=== PATIENT | male | born 1950 | race Caucasian/White ===

== ENCOUNTER 2024-09-20 10:09 | Inpatient (IN) | payer MEDICARE ==
[~2024-09-20] VITALS: Ht 182.9 cm; Wt 85.0 kg
[~2024-09-20 10:09] MED LIST: AMBIEN10 MG PO; AMBIEN5 MG PO; ANAPROX DS550 MG PO; ASPIR-LOW81 MG PO; FISH OIL 1,0001 EAC2 PO; FLOMAX0.4 MG PO; HYDROMORPHONE HC4 MG PO; LISINOPRIL-HCT1 EAC1 PO; LUMIGAN2.5 M1 OU; MULTIVITAMINS1 EAC8 PO; NAPROXEN500 MG PO; NITROGLYCERIN0.4 MG SL; NORCO 10-325 T1 EACH PO; NORCO 5-325 TA1 EACH PO; NUCYNTA50 MG PO; OMEPRAZOLE40 MG PO; TERAZOSIN HCL1 MG PO; TYLENOL PM EX-1 EAC2 PO; VIAGRA100 MG PO
[2024-09-20] MEDS ORDERED: BETIMOL5 M2 OU (14:18)
[2024-09-20] MEDS ORDERED: JANTOVEN5 MG PO (14:18)
[2024-09-20] MEDS ORDERED: FLOMAX0.4 MG PO (14:18)
[2024-09-20] MEDS ORDERED: ALENDRONATE SOD10 MG PO (14:20)
[2024-09-20] MEDS ORDERED: XALATAN2.5 ML OU (14:20)
[2024-09-20] MEDS ORDERED: TRAMADOL HCL50 MG PO (14:21)
[2024-09-20] MEDS ORDERED: LASIX20 MG PO (14:22)
[2024-09-20] MEDS ORDERED: CLARITIN10 MG PO (14:23)
[2024-09-20] MEDS ORDERED: POTASSIUM CHLO10 ME2 PO (15:02)
[2024-09-28] MEDS ORDERED: LACTATED RINGER'S 1,000 ML IV SCH ×2 (05:00→14:00)
[2024-09-28 06:05] VITALS: BP 149/73
--- NOTE | 2024-09-28 06:29 | NUR ---
0606 PT HAS WATCH, GLASSES IN BELONGING BAG. PT SUPPORT PERSON HAS TAKEN NECKLACE WITH THEM IN THEIR PURSE. PT AWARE.
[2024-09-28] MEDS ORDERED: MIDAZOLAM HCL 2 MG/2 ML VIAL ONE (06:32)
[2024-09-28] MEDS ORDERED: SODIUM CHLORIDE 0.9% 0 ML IV ONE (06:33)
[2024-09-28] MEDS ORDERED: Ropivacaine HCl 0.5% 30 ML VIAL ONE (06:33)
[2024-09-28] MEDS ORDERED: LIDOCAINE HCL 2% 5 ML SDV ONE ×4 (06:33→08:36)
[2024-09-28] MEDS ORDERED: DEXAMETHASONE SOD PHOS 4 MG/ML VIAL ONE ×2 (06:33→06:50)
[2024-09-28] MEDS ORDERED: fentaNYL citrate 100 MCG/2 ML VIAL ONE (06:49)
[2024-09-28] MEDS ORDERED: ACETAMINOPHEN 1,000 MG/100 ML VIAL ONE (06:50)
[2024-09-28] MEDS ORDERED: SODIUM CHLORIDE 0.9% 40 ML IV ONE ×2 (06:50→08:34)
[2024-09-28] MEDS ORDERED: KETAMINE in NS 50 MG/5 ML SYR ONE (06:50)
[2024-09-28] MEDS ORDERED: ROCURONIUM BROMIDE 50 MG/5 ML SYR ONE (06:50)
[2024-09-28] MEDS ORDERED: MAGNESIUM SULFATE 1 GM/2 ML VIAL ONE ×2 (06:59→08:34)
[2024-09-28] MEDS ORDERED: OXYCODONE HCL 5 MG TAB PO PRN (07:00)
[2024-09-28] MEDS ORDERED: GABAPENTIN 600 MG TAB PO SCH (07:00)
[2024-09-28] MEDS ORDERED: LIDOCAINE HCL 1% 5 ML SDV INJ ONE (07:00)
[2024-09-28] MEDS ORDERED: IBLOOD GLUCOSE TEST STRIP 1 EA TEST VI PRN ×2 (07:00→08:30)
[2024-09-28] MEDS ORDERED: TRANEXAMIC ACID IN NACL,ISO-OS 1,000 MG/100 ML PIGGYBACK IV SCH ×2 (07:00→09:58)
[2024-09-28] MEDS ORDERED: ROPIVACAINE IN 0.9% SOD CHL/PF 545 ML ELS.PMP.HR IRRIGATION SCH (07:00)
[2024-09-28] MEDS ORDERED: INTRA-ARTICULAR ANALGESIC INJECTION XX SCH (07:00)
[2024-09-28] MEDS ORDERED: PANTOPRAZOLE SODIUM 40 MG TABEC PO SCH (07:00)
[2024-09-28] MEDS ORDERED: KETOROLAC TROMETHAMINE 15 MG/ML VIAL IV PRN (07:00)
[2024-09-28] MEDS ORDERED: OXYCODONE HCL 5 MG TAB PO SCH (07:00)
[2024-09-28] MEDS ORDERED: Ropivacaine HCl 20 MG/10 ML AMP ONE (07:16)
[2024-09-28] MEDS ORDERED: KETOROLAC TROMETHAMINE 30 MG/ML VIAL IV PRN (08:30)
[2024-09-28] MEDS ORDERED: fentaNYL citrate 50 MCG/ML SDV IV PRN (08:30)
[2024-09-28] MEDS ORDERED: NALOXONE HCL 0.4 MG SYR IV PRN (08:30)
[2024-09-28] MEDS ORDERED: HYDROmorphone HCL 1 MG/ML SYR IV PRN (08:30)
--- NOTE | 2024-09-28 09:35 | NUR ---
09/28/24 0935 Marichuy Tipton 0922-PT ARRIVES TO PACU, VIA STRETCHER, PT NOT RESPONSIVE TO NOXIOUS STIMULI, OPA IN PLACE, VSS ON 6L VIA MASK, RR EVEN AND UNLABORED. 0925-PT REACTIVE TO NOXIOUS TIMULI, BUT CONTINUES TO REST W/ EYES CLOSED, OPA REMAINS IN PLACE.
[2024-09-28] MEDS ORDERED: SALINE LOCK FLUSH 5 ML SYR IV PRN (10:00)
--- NOTE | 2024-09-28 10:45 | OR ---
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 POSTOPERATIVE DIAGNOSIS: Infected left total knee replacement. PROCEDURES PERFORMED: 1. Removal of total knee replacement with placement of spacers. 2. Debridement of skin, subcutaneous tissue and bone. PHYSICAL SECURITY ENGINEER: Dawn Nguyen PA-C. Dawn was present and critical for all portions of procedure. ANESTHESIA: General. TOURNIQUET TIME: 105 minutes. IMPLANTS: Stage I Ronnie spacers. BRIEF HISTORY: Tani is a 74-year-old gentleman who suffered a mechanical injury about three months ago with subsequent onset of significant swelling in his knee. We treated this with physical therapy and ultimately did aspirate it after labs showed positive IL6 and sedimentation rate, CRP. The culture results showed marked growth of E coli, which was essentially pansensitive. Risks and benefits of removal of the implant since this has been going on for some time were discussed with him. He elected to proceed. I did not feel that a single stage revision was warranted given the bacteria and the length of symptoms. DESCRIPTION OF PROCEDURE: Once consent was obtained, he was taken to the operating room. After adequate anesthesia he was placed on operating room table. All downside pressure points were Electronically Signed By: ARMANI EASTON MD 09/28/24 1045 PATIENT NAME: LEE MUNGUIA OPERATIVE REPORT DATE OF : 50 REPORT #: [id number] PHYSICIAN: ARMANI EASTON MD PCP: AZEEM MARI DO REPORT IS CONFIDENTIAL AND NOT TO BE RELEASED WITHOUT AUTHORIZATION [facility] [address], [place] [address] Signed well padded. A well-padded proximal thigh tourniquet was placed. The leg was exsanguinated by gravity and prepped and draped in a standard sterile fashion. The tourniquet was inflated to 250 mmHg. The prior incision was marked out and incised longitudinally. A standard median parapatellar arthrotomy was performed. The fluid in the knee was again cultured and sent off to the hospital lab. The synovium in the front of the knee in the suprapatellar pouch and down both medial and lateral gutters was then removed sharply using the knife and rongeurs. The patella was then removed by sawing it off the three pegs. This was done to allow better access to the femur. Once this was completed, the synovium on the femur was removed. The polyethylene was then snapped out and removed. The edge of the femoral prosthesis was then cleared of soft tissue and bony overgrowth. It was then loosened by using the microsagittal saw to saw along the base of the prosthesis in all accessible areas and from medial and lateral portions of the notch. Then using ultrathin osteotomes, we were able to go all the way across the prosthesis. Then using a bone tap, we were able to tap it off with minimal bone loss. The bone underneath particularly on the medial femoral condyle was extremely soft and very spongy. The bone was cleared of all soft tissue and debris. Any remaining cement was removed. Attention was then turned to the proximal tibia. The tibial component was again loosened by using microsagittal saw followed by the osteotomes. We then tapped three or four times and we were able to again remove it with minimal bone loss. The remaining cement particularly in the stem were removed. The entire knee was then pulse lavaged with 2 L normal saline and one bottle of Surgiphor. The bottle of Surgiphor was allowed to sit. Then using the Ronnie trials, we determined the size of the mold for the articulating spacers. The spacer molds were then obtained and injected with cement to the proper depth. These were allowed to harden for 15 minutes. We then did a trial run with the spacers and found good soft tissue tension. Once this was completed, the third batch of cement was mixed and was placed in the tibial defects in a loose manner not trying to interdigitated into the bone. The tibia was then placed into position in similar manner. The femoral component was cemented to the distal femur and the knee was extended and loaded. While the cement was hardening we then removed the three polyethylene pegs from the patella and debrided any remaining cement. Once this was completed, the On-Q pain pump was percutaneously placed into the adductor canal. Periarticular soft tissues were injected with 4 mL ropivacaine Toradol mixture. We then closed the arthrotomy with #2 FiberWire followed by #2 Stratafix, subcutaneous tissue with 0 Stratafix and skin with rajendra. Wound was dressed with an Acticoat-7 dressing, ABD, and a bulky Lr. He tolerated the procedure well. All sponge, needle, and instrument counts were correct. Armani Easton MD Electronically Signed By: ARMANI EASTON MD 09/28/24 1045 PATIENT NAME: LEE MUNGUIA OPERATIVE REPORT DATE OF : 50 REPORT #: [id number] PHYSICIAN: ARMANI EASTON MD PCP: AZEEM MARI DO REPORT IS CONFIDENTIAL AND NOT TO BE RELEASED WITHOUT AUTHORIZATION [address] [place] [address] Signed /MODL /[id number] Copies: ~ Electronically Signed By: ARMANI EASTON MD 09/28/24 1045 PATIENT NAME: LEE MUNGUIA OPERATIVE REPORT DATE OF : 50 REPORT #: [id number] PHYSICIAN: ARMANI EASTON MD PCP: AZEEM MARI DO REPORT IS CONFIDENTIAL AND NOT TO BE RELEASED WITHOUT AUTHORIZATION
--- NOTE | 2024-09-28 11:41 | NUR ---
Pt's s/o is waiting in room 115 for the pt.
[2024-09-28 13:50] VITALS: BP 167/91
--- NOTE | 2024-09-28 14:08 | NUR ---
Pt arrived to the floor at about 1350 hours, transferred via bed by LEAD MINER BLASTING Marichuy. Pt is A&O x4, denies nausea/vomiting, reports last BM was 2 days ago. Reports pain in the back of his knee at a 2 out of 10 currently after the cryo cuff was moved to the back of the knee. He states he can tolerate up to about a 3 out of 10 before he will want pain medication. Pt's is at bedside. Pt is tolerating iced water, jello, and crackers at this time without c/o nausea/vomiting.
--- NOTE | 2024-09-28 14:52 | NUR ---
UR CLINICAL REVIEW: 2 MN KERVIN, MEETS INPT FOR LEFT INFECTED TKR SURGICAL PROCEDURE, IV FLUIDS, IV ANTIBIOTICS, IV PAIN MEDS MEDICARE INPT 09/28/24 @ 0704 ORDER MATCHES REG NO AUTH REQUIRED PER MEDICARE RULES. DC PLAN PENDING PT EVAL.
[2024-09-28 14:57] VITALS: BP 150/29
[2024-09-28] MEDS ORDERED: ACETAMINOPHEN 500 MG TAB PO SCH (15:00)
[2024-09-28] MEDS ORDERED: GABAPENTIN 300 MG CAP PO SCH (15:00)
[2024-09-28] MEDS ORDERED: SEVOFLURANE 250 ML BTL INH ONE (15:09)
--- NOTE | 2024-09-28 15:45 | NUR ---
"PICC LINE PLACEMENT" ORDER FOR PICC LINE PLACEMENT FROM DR WELLER FOR PROLONGED ANTIBIOTIC THERAPY. PROCEDURE EXPLAINED TO PT AND FAMILY PRIOR TO SURGERY IN THE MORNING IN ORDER TO OBTAIN CONSENT WITHOUT MEDICATIONS ON BOARD. PT AND FAMILY VERBALIZED UNDERSTANDING AND CONSENTED. WHILE IN PACU, THE RIGHT ARM WAS ASSESSED WITH ULTRASOUND FOR VEIN CHOICE. ALL VEINS AND ARTERY IDENTIFIED AND THE BASILIC VEIN WAS CHOSE AND MEASURED, CATHETER TO OCCUPY 30% OF VEIN AND APPROX 1 CM DEEP. PT MEASURED FOR PICC LENGTH, MAGNET TRACKER SET UP, AND PT PREPPED IN STERILE FASHION. RIGHT BASILIC VEIN ACCESSED WITH 20 G IV CATHETER AND BLOOD RETURNED, UNABLE TO DRAW BLOOD FROM SITE AND DECIDED TO CHOSE ANOTHER SITE. BRACHIAL VEINS WERE NOT APPROPRIATE, DECISION TO MOVE TO LEFT SIDE OF PT. ABOVE STEPS WERE FOLLOWED AGAIN, LEFT BASILIC VEIN THE BEST OPTION ON THE LEFT, CATHETER TO OCCUPY 35% OF VEIN AND APPROX 0.5 CM DEEP. PT MEASURED AND PREPPED AGAIN IN A STERILE FASHION. SITE WAS INJECTED WITH 1% LIDOCAINE, VEIN ACCESSED WITH 20 G IV CATHETER, DARK RED NON PULSATILE BLOOD RETURNED. GUIDE WIRE FED INTO CATHETER WITHOUT DIFFICULT, CATHETER REMOVED. VEIN DILATED WITH TRANSDUCER, AGAIN NON PULSATILE DARK RED BLOOD RETURNED. GUIDE WIRE REMOVED AND INTACT. PICC LINE FED THROUGH TRANSDUCER AT A SLOW PACE, MAGNET TRACKER IS NOT PICKING UP THE CATHETER, CONTINUE TO FEED AND ATTEMPT TO TROUBLESHOOT SYSTEM. NO ECTOPY ON MONITOR, PT HAS NO SENSATION IN NECK. CONTINUE TO ADVANCE CATHETER TO 0 CM EXPOSED, UNABLE TO GET MAGNET TRACKER TO TRACK PICC. DECISION TO STERILY DRESS CATHETER AND GET A CHEST XRAY FOR PLACEMENT, POSITIVE BLOOD RETURN. 1315- XRAY REPORT SHOWS THAT PICC LINE IS NOT PLACED CORRECTLY AND RECOMMENDS REPOSITIONING. PICC TEAM CONSULTED AND PLAN TO PROCEED MADE. 1330- PT DRAPED STERILY AND THIS RN GOWN, CAP, AND MASK. DRESSING REMOVED AND ARM PREPPED IN STERILE FASHION. CATHETER REMOVED 15 CM, PT HEAD OF BED ELEVATED TO 30 DEGREES, HAD PT TURN HEAD TO LEFT SHOULDER AND LOOK DOWN WHILE READVANCING CATHETER, NO ECTOPY ON MONITOR. SITE DRESSED STERILY AND REPEAT CHEST XRAY ORDERED. 1405- REPORT SHOWS PICC LINE TIP IN THE CAVOATRIAL JUNCTION, DRESSING WAS LABELED APPROPRIATELY, MILIND CARABALLO NOTIFIED PICC LINE IS OK FOR USE AT THIS TIME. INFORMATION CARD GIVEN TO PT.
[2024-09-28 18:18] VITALS: BP 163/79
--- NOTE | 2024-09-28 18:22 | NUR ---
PATIENT IS IN HIS BED RESTING, CYTOTECHNOLOGIST/HISTOTECHNOLOGIST CHARTED VITALS AND I&O'S, CALL LIGHT WITH IN REACH, GOT FRESH ICE WATER, NOTHING ELSE NEEDED AT THIS TIME.
--- NOTE | 2024-09-28 20:14 | NUR ---
REPORT GIVEN TO [facility] DEPARTMENT FOR PATIENT TRANSPORT. PATIENT OFF FLOOR AT THIS TIME.
[2024-09-28] MEDS ORDERED: MAGNESIUM HYDROXIDE 30 ML UDC PO SCH (21:00)
[2024-09-28] MEDS ORDERED: SENNOSIDES 1 TAB PO SCH (21:00)
[2024-09-28] MEDS ORDERED: MELATONIN 3 MG TAB PO SCH (21:00)
[2024-09-28] MEDS ORDERED: TAMSULOSIN HCL 0.4 MG CAP PO SCH (21:00)
[2024-09-28 21:21] VITALS: BP 130/63
--- NOTE | 2024-09-28 21:44 | NUR ---
PATIENT IN BED WITH HOB RAISED, EYES OPEN, CHEST RISE MICHEAL AND UNLABORED. ASSESSMENT COMPLETE. CPOX, SCDS, CRYO CUFF, AND ONCUE PUMP IN PLACE. ONCUE PUMP SET TO 8. IV FLUID INFUSING WITHOUT DIFFICULTY INTO PICC LINE AFTER PULSATILE FLUSH OF PICC LINE, PERIPHERIAL IV SITE SALINE LOCKED. ASSESSMENT AND VITAL SIGNS COMPLETED. PATIENT DENIES CONCERNS AT THIS TIME.
[2024-09-28 21:51] VITALS: BP 130/63
--- NOTE | 2024-09-28 22:56 | NUR ---
PATIENT IN BED WITH HOB RAISED, EYES OPEN, CHEST RISE EQUAL AND UNLABORED. IV INFUSING WITHOUT DIFFICULTY. CPOX, CRYO CUFF, AND SCDS IN PLACE. IS, PERSONAL BELONGINGS, AND CALL LIGHT IN REACH OF PATIENT. PATIENT DENIES CONCERNS AT THIS TIME.
--- NOTE | 2024-09-28 23:51 | NUR ---
PATIENT CALL LIGHT ANSWERED. PATIENT IN BED WITH HOB RAISED, EYES OPEN, CHEST RISE EQUAL AND UNLABORED. NEW BAG OF IV FLUIDS HUNG, INFUSING WITHOUT DIFFICULTY. CPOX, CRYO CUFF, AND SDCS IN PLACE. IS, PERSONAL BELONGINGS, AND CALL LIGHT IN REACH. PATIENT DENIES CONCERNS AT THIS TIME.
[2024-09-29] VITALS (12 sets, daily range): BP systolic 123–155; BP diastolic 65–78
--- NOTE | 2024-09-29 01:56 | NUR ---
PATIENT IN BED WITH HOB RAISED, EYES OPEN, CHEST RISE EQUAL AND UNLABORED. CPOX IN PLACE, O2 SAT 92 ON ROOM AIR. 2L O2 PLACED, OXYGEN SATURATION 97% ON 2L OF O2. CRYO CUFF, CPOX, AND SCDS IN PLACE. PATIENT DENIES CONCERNS AT THIS TIME. IV FLUID INFUSING WITHOUT DIFFICULTY. VITAL SIGNS COMPLETED.
--- NOTE | 2024-09-29 02:48 | NUR ---
PATIENT IN BED WITH HOB RAISED, EYES OPEN, CHEST RISE EQUAL AND UNLABORED. HEELS ELEVATED OFF BED. CRYO CUFF IN PLACE, ICE AND WATER REPLACED. PATIENT REFUSES K-PAD AT PICC SITE. CHLORAHEXADINE WIPE DOWN COMPLETED. IV FLUIDS INFUSING WITHOUT DIFFICULTY. IS, PERSONAL BELONGINGS, AND CALL LIGHT IN REACH OF PATIENT. SDCS IN PLACE. PATIENT DENIES CONCERNS AT THIS TIME. NO DRAINAGE NOTED ON SURGICAL DRESSING.
--- NOTE | 2024-09-29 04:03 | NUR ---
PATIENT IN BED WITH HOB RAISED, EYES OPEN, CHEST RISE EQUAL AND UNLABORED. IV FLUID INFUSING WITHOUT DIFFICULTY. CPOX, AND SCDS IN PLACE. HEELS RAISED OFF BED SURFACE. CRYO CUFF IN PLACE. IS, PERSONAL BELONGINGS, AND CALL LIGHT IN REACH. NO APPARENT NEEDS NOTED AT THIS TIME.
[2024-09-29 05:44] LABS: BASOPHILS 0.2 % (0.2-1.2); EOSINOPHILS 0.2 % (0.8-7.0); LYMPHOCYTES 17.2 % (21.8-53.1); MCH 24.9 PG (25.7-32.2); MCHC 30.6 g/dL (32.3-36.5); MCV 81.5 fL (79.0-92.2); MONOCYTES 9.6 % (5.3-12.2); NEUTROPHILS 72.3 % (34.0-67.9); RBC 3.73 M/uL (4.63-6.08)
--- NOTE | 2024-09-29 05:53 | NUR ---
NEUROLOGY TECH TO ROOM FOR CPOX ALARM. PT REPORTS PAIN TO L KNEE, 06/14. PT REQUESTS PRN, ADMINISTERED. SEE EMAR. PT DENIES FURTHER NEEDS AT THIS TIME. CALL LIGHT IN REACH.
[2024-09-29 06:00] LABS: ALT (SGPT) 23.0 U/L (14-59); AST (SGOT) 19.0 U/L (15-37); GLOMERULAR FILTRATION RATE,EST 80.0 mL/min (>60); PHOSPHORUS, INORGANIC 2.4 mg/dL (2.5-4.9); PROTEIN, TOTAL 6.0 g/dL (6.4-8.2); UREA NITROGEN 17.0 mg/dL (7-18)
--- NOTE | 2024-09-29 06:37 | NUR ---
PATIENT IN BED WITH HOB RAISED. EYES OPEN, CHEST RISE EQUAL AND UNLABORED. HEELS RAISED OFF THE SURFACE OF THE BED. CRYO CUFF AND SCDS IN PLACE. IV FLUID INFUSING WITHOUT DIFFICULTY. LABS DRAWN BY THIS RN FROM PICC LINE WITHOUT ISSUE. PATIENT DENIES CONCERNS AT THIS TIME. CALL LIGHT, PERSONAL BELONGINGS, AND IS IN REACH OF PATIENT.
--- NOTE | 2024-09-29 07:45 | NUR ---
MORNING REPORT RECIEVED FROM ILYA HOFFMANN. PT SITTING UP IN BED WITH CPOX, CRYO CUFF, AND VFP IN PLACE. PT HAS NO CURRENT CONCERNS AT THIS TIME AND HAS CALL LIGHT IN REACH. PT DRESSING ON LEFT LEG ARE CDI AT THIS TIME.
--- NOTE | 2024-09-29 08:41 | NUR ---
PT SITTING UP IN BED AT THIS TIME, PT PAIN IS TOLERABLE PT STATES. PT DENEIS ANY NEEDS AT THIS TIME AND HAS CALL LIGHT IN REACH.
[2024-09-29] MEDS ORDERED: PANTOPRAZOLE SODIUM 40 MG TABEC PO SCH (09:00)
--- NOTE | 2024-09-29 10:21 | NUR ---
PT WORKED WITH OHYSICAL THERAPY, PT HAS NO CURRENT CONCERNS AT THIS TIME, PT PAIN LEVEL IS TOLERABLE FOR THEM AT THIS TIME AND PT IS CURRENTLY SITTING P IN CHAIR WITH LEGS ELEVATED AND CRYOCUFF IN PLACE. PT CALL LIGHT IN REACH.
--- NOTE | 2024-09-29 11:23 | NUR ---
PT SITTING P IN CHAIR, PT DENIES ANY CONCERNS AT THIS TIME AND HAS CALL LIGHT IN REACH AT THIS TIME, PT HAS FAMILY AT BEDSIDE IN ROOM.
--- NOTE | 2024-09-29 11:52 | NUR ---
PT COMPLAINED OF PAIN 5-10 AND WAS GIVEN PRN (OXY SEE EMAR). PT GIVEN 5MG TO TITRATE TO ORDERED 10MG MAX DOSE. PT HAS NO OTHER CONCERNS CALL LIGHT IN REACH AT THIS TIME.
--- NOTE | 2024-09-29 13:00 | NUR ---
PT SITTING UP IN CHAIR, CRYO CUFF IN PLACE DRESSING ON LEFT LEG IN CDI AT THIS TIME AND HAS NO CONCERNS CALL LIGHT IN REACH.
--- NOTE | 2024-09-29 14:15 | NUR ---
PT SITTING UP IN CHAIR, PT DENIES ANY CURRENT NEEDS, PT PICC FLUSHED WITH 20ML NS WITH GOOD BLOOD RETURN. PT HAS NO CURRENT NEEDS AND TOLERATED WELL, CALL LIGHT IN REACH.
--- NOTE | 2024-09-29 15:42 | NUR ---
PT SITTING UP IN CHAIR, PT GIVEN SCHEDULED TYLENOL (SEE EMAR). PT TOLERATED WELL AND HAS CALL LIGHT IN REACH. PT CRYO CUFF ICE REPLACED.
--- NOTE | 2024-09-29 17:59 | NUR ---
PT TRANSFERED FROM CHAIR INTO BED, PT TOLERATED WELL, 1PA WITH FWW, PT DID NOTE HIS PAIN DID INCREASE FROM A 5 TO A 7. PT EDUCATED ON POST OP DAY TWO AND THE RECOVERY PROCESS OF THEIR SURGERY. PT UNDERSTANDS AND HAS NO CURRENT CONCERNS THIS RN WITH CHECK ON PT PAIN LEVEL SOON. PT HAS CALL LIGHT IN REACH AT THIS TIME.
--- NOTE | 2024-09-29 18:35 | NUR ---
MD GARCIA CONTACTED CONCERNING PT GLAUCOMA MEDICATIONS. MD GARCIA GAVE VERBAL ORDER TO GIVE PT EYE DROPS.
--- NOTE | 2024-09-29 19:32 | NUR ---
REPORT RECEIVED FROM DAY SHIFT RN. PT LYING IN BED ALERT AND ORIENTED. DENIES NEEDS. WHITE BOARD UPDATED. CALL LIGHT IN REACH.
--- NOTE | 2024-09-29 20:26 | NUR ---
NINFA IS AWAKE IN BED WATCHING TV. HE STATES THAT HE DOES NOT WEAR HOME OXYGEN OR A CPAP/BIPAP, NOR DOES HE USE ANY INHALED RESPIRATORY MEDICATIONS. HE IS NON-COMPLIANT SUNG.
--- NOTE | 2024-09-29 20:27 | NUR ---
EVENING ASSESSMENT COMPLETE. SCHEDULED MEDS ADMIN PER EMAR. PT REPORTS LEFT KNEE PAIN 08/14. PRN FOR PAIN ADMIN PER EMAR. LEFT KNEE DRESSING CDI. CMS INTACT. FRESH ICE TO CRYO. SCD'S/TEDS IN PLACE. ON-Q PUMP INFUSING AT 8ML/HR. PT DENIES QUESTIONS OR CONCERNS. CALL LIGHT IN REACH.
--- NOTE | 2024-09-29 22:54 | NUR ---
PT AWAKE IN BED. DENIES NEEDS AT THIS TIME. CALL LIGHT IN REACH.
[2024-09-30] VITALS (9 sets, daily range): BP systolic 113–162; BP diastolic 68–85
--- NOTE | 2024-09-30 00:13 | NUR ---
PT REPORTS LEFT KNEE PAIN 07/14. PRN FOR PAIN ADMIN PER EMAR. URINAL EMPTIED. EXTRA BLANKET PROVIDED. NO FURTHER NEEDS. CALL LIGTH IN REACH.
--- NOTE | 2024-09-30 02:29 | NUR ---
PT RESTING IN BED WITH EYES CLOSED. SpO2 91% ON RA. HR 70'S. CALL LIGHT IN REACH.
--- NOTE | 2024-09-30 04:03 | NUR ---
PT REPORTS LEFT KNEE PAIN 05/14. PRN FOR PAIN ADMIN PER EMAR. ASSESSMENT UNCHANGED. FRESH ICE IN CRYO. LEFT KNEE DRESSING CDI. ON-Q INFUSING AT 8ML/HR. CMS INTACT. URINAL EMPTIED. NO FURTHER NEEDS. CALL LIGHT IN REACH.
[2024-09-30 05:28] LABS: BASOPHILS 0.5 % (0.2-1.2); EOSINOPHILS 3.8 % (0.8-7.0); LYMPHOCYTES 25.9 % (21.8-53.1); MCH 25.1 PG (25.7-32.2); MCHC 30.7 g/dL (32.3-36.5); MCV 81.7 fL (79.0-92.2); MONOCYTES 11.2 % (5.3-12.2); NEUTROPHILS 58.2 % (34.0-67.9); RBC 3.67 M/uL (4.63-6.08)
--- NOTE | 2024-09-30 05:34 | NUR ---
MORNING LABS DRAWN FOR PICC LINE PER PROTOCOL. VS AND I&O OBTAINED. PT DENIES NEEDS AT THIS TIME. CALL LIGHT IN REACH.
[2024-09-30 05:43] LABS: GLOMERULAR FILTRATION RATE,EST 84.0 mL/min (>60); UREA NITROGEN 15.0 mg/dL (7-18)
--- NOTE | 2024-09-30 07:39 | NUR ---
MORNING REPORT RECIEVED FROM ILYA SPRAGUE. PT SITTING UP IN BED, PT DENEIS PAIN AND HAD A GOOD NIGHT. PT STATES " THEY DID NOT SLEEP WELL DUE TO HAVING TO VOID FREQUENTLY". PT HAS NO CONCERNS AND CALL LIGHT IN REACH.
--- NOTE | 2024-09-30 09:14 | NUR ---
PT UP IN BED, AWAKE AND ALERT. CAME IN AND CHECKED ON PT. CLEANED UP ROOM. CALL LIGHT WITHIN REACH, PT WATCHING TV. PT REPORTS NEEDING NOTHING ELSE AT THIS TIME.
--- NOTE | 2024-09-30 10:35 | NUR ---
PT SITTING UP IN BED WITH EYES CLOSED, PT EASLY AWOKEN, PT STATES " THEY DID NOT SLEEP WELL LAST NIGHT AND ARE GOING TO TRY AND TAKE A NAP" PT DENIES PAIN AT THIS TIME AND HAS CALL LIGHT IN REACH.
[2024-09-30] MEDS ORDERED: BRIMONIDINE TART5 ML OU (12:14)
--- NOTE | 2024-09-30 13:26 | NUR ---
PT MOVED FROM CHAIR BACK INTO BED, PT SAID THAT THE CHAIR WAS UNCOMFORTABLE ON THEIR LEG. PT TOLERATED AMBULATION WELL 1PA FWW. PT RETURNED TO BED AND CRYO CUFF IN PLACE WITH FLUIDS HANGING. PT GIVEN A BREAK FROM THE VFP AT THIS TIME WILL PLACE THEN WHEN THIS RN NEXT ENTERS ROOM. PT CALL LIGHT IN REACH AND NO CURRENT CONCERNS.
--- NOTE | 2024-09-30 14:12 | NUR ---
PT RESTING IN BED, THREE VISITORS PRESENT, THEN TWO LEFT. REQUESTED NOTHING, PT HAS ICE TEA AND A CUP OF WATER NEXT TO HIM. CALL LIGHT WITHIN REACH.
--- NOTE | 2024-09-30 14:57 | NUR ---
PT SITTING UP IN BED WITH EYES CLOSED CHEST RISE EQUAL BILAT AT THIS TIME. PT CRYO CUFF IN PLACE WITH FVP IN PLACE. PT HAS CALL LIGHT IN REACH AT THIS TIME IF NEEDED.
--- NOTE | 2024-09-30 16:09 | NUR ---
PT SITTING UP IN BED, PT IS TRYING TO NAP BUT CONTINUES TO HAVE TO VOID, IV FLUIDS HAVE BEEN DC'D PER MD ORDER. PT CALL LIGHT IN REACH.
--- NOTE | 2024-09-30 16:30 | NUR ---
PT COMPLAINED ABOUT PAIN STARTING TO CLIMB AGAIN IN THE LEFT LEG, PT GIVEN PRN OXY (SEE EMAR). PT ALERT AND ORIENTED, AND HAS NO CONCERNS AT THIS TIME, PT HAS VISITORS IN THE ROOM AND HAS CALL LIGHT IN REACH.
--- NOTE | 2024-09-30 17:25 | NUR ---
PT SITTING UP IN BED AT THIS TIME, PT CRYO CUFF COOLER REFILLED WITH ICE, PT DENIES PAIN AT THIS TIME AND CONTINUES TO VOID CLEAR YELLOW URINE. PT HAS NO CONCERNS AND CALL LIGHT IN REACH AT THIS TIME.
--- NOTE | 2024-09-30 17:57 | NUR ---
PT RESTING IN BED, VISITOR HAVE LEFT. PT WATCHING TV. HE HAS ICE TEA AND A CUP OF WATER, REQUESTING NOTHING ELSE AT THIS TIME. CALL LIGHT IN REACH.
--- NOTE | 2024-09-30 18:18 | NUR ---
PT SITTING UP IN BED WITH NO CURRENT CONCERNS. PT DENIES NO PAIN AT THIS TIME AND HAS CRYO CUFF IN PLACE WITH VFP. PT HAS CALL LIGHT IN REACH AT THIS TIME.
--- NOTE | 2024-09-30 19:19 | NUR ---
REPORT RECEIVED FROM DAY SHIFT RN. PT LYING IN BED ALERT AND ORIENTED. DENIES NEEDS. WHITE BOARD UPDATED. CALL LIGHT IN REACH.
--- NOTE | 2024-09-30 20:22 | NUR ---
NINFA IS AWAKE ON ROOM AIR AND APPEARS TO BE IN GOOD SPIRITS.
[2024-09-30] MEDS ORDERED: BRIMONIDINE TARTRATE 5 ML DROPS OU SCH (21:00)
[2024-09-30] MEDS ORDERED: TIMOLOL MALEATE 0.5% OU SCH ×2 (21:00)
[2024-09-30] MEDS ORDERED: LATANOPROST EYE DROPS OU SCH ×2 (21:00)
--- NOTE | 2024-09-30 22:16 | NUR ---
EVENING ASSESSMENT COMPLETE. SCHEDULED MEDS ADMIN PER EMAR. PT REPORTS LEFT KNEE PAIN 03/16. LEFT KNEE DRESSING CDI. CMS INTACT. SCD'S/TEDS/CRYO IN PLACE. HEELS FLOATED OFF BED WITH ROLLED TOWELS. VS AND I&O OBTAINED. PT DENIES QUESTIONS OR CONCERNS. CALL LIGHT IN REACH.
--- NOTE | 2024-09-30 23:45 | NUR ---
PT REPORTS LEFT KNEE PAIN 03/16. PRN FOR PAIN ADMIN PER REQUEST. FRESH WATER AND ICE TO CRYO. URINAL EMPTIED. NO FURTHER NEEDS. CALL LIGHT IN REACH.
[2024-10-01] VITALS (10 sets, daily range): BP systolic 123–161; BP diastolic 60–82
--- NOTE | 2024-10-01 01:55 | NUR ---
CALL LIGHT ANSWERED. URINAL EMPTIED. DENIES FURTHER NEEDS. CALL LIGHT IN REACH.
--- NOTE | 2024-10-01 04:00 | NUR ---
prn for pain admin per request for 1/10 left knee pain. pt denies other needs. call light in reach.
[2024-10-01 05:28] LABS: BASOPHILS 0.6 % (0.2-1.2); EOSINOPHILS 4.1 % (0.8-7.0); LYMPHOCYTES 23.8 % (21.8-53.1); MCH 25.0 PG (25.7-32.2); MCHC 30.7 g/dL (32.3-36.5); MCV 81.4 fL (79.0-92.2); MONOCYTES 11.0 % (5.3-12.2); NEUTROPHILS 59.9 % (34.0-67.9); RBC 3.92 M/uL (4.63-6.08)
[2024-10-01 05:42] LABS: GLOMERULAR FILTRATION RATE,EST 91.0 mL/min (>60); UREA NITROGEN 16.0 mg/dL (7-18)
--- NOTE | 2024-10-01 06:07 | NUR ---
MORNING LABS DRAWN FROM PICC LINE PER PROTOCOL. VS AND I&O OBTAINED. NO C/O PAIN AT THIS TIME. FRESH ICE TO CRYO. NO FURTHER NEEDS. CALL LIGHT IN REACH.
--- NOTE | 2024-10-01 07:14 | NUR ---
MORNING REPORT RECIEVED FROM ILYA SPRAGUE. PT SITTING UP IN BED AWAKE AND ALERT, PT DENIES PAIN AT THIS TIME, AND HAS NO CURRENT CONCERNS. PT HAS CALL LIGHT IN REACH.
--- NOTE | 2024-10-01 08:40 | NUR ---
PATIENT IS EATING BREAKFAST. CHECKED CRYO IT IS FINE. SAID HE WILL BRUSH HIS TEETH AFTER BREAKFAST.
--- NOTE | 2024-10-01 10:20 | NUR ---
FE NGUYEN CONTACTED VIA PHONE AND WAS ASKED ABOUT PT ONQ PUMP BEIGN EMPTY. THIS RN ASKED IF SHE WOULD LIKE IT REFILLED AND SHE SAID TO LEAVE THE ONQ PUMP ALONE UNTIL NITHIN WEBER SEES PT.
--- NOTE | 2024-10-01 10:50 | NUR ---
Spoke with Shaun. 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 [place] his exwifes home. He would like IV antibiotics in the home instead of coming in daily for IV antibiotics x [address] Easton in the room and signed orders for [facility]. Pt in agreement with this. Chart will be sent to check if antibiotics will be coverd in the home. Orders completed. Pt needs a walker and will ask his ex to pick one up from [place]. Pt also thinks he may qualify for food stamps,number given for Aging a Disability. I returned to the room to get the address of where he will be staying and pt has gone to [place]. Report given to Adela.
[2024-10-01 11:19] LABS: BLOOD/HGB, URINE MODERATE (Negative); KETONE, URINE NEGATIVE (Negative); LEUK ESTERASE, URINE TRACE (negative); NITRITE, URINE NEGATIVE (negative)
[2024-10-01 11:28] LABS: BACTERIA, URINE RARE /hpf (negative); CRYSTALS, URINE NONE SEEN (0-1+); EPITHELIAL CELLS, URINE SQUAMOUS 2+ /lpf (0-1+)
[2024-10-01 11:29] LABS: CASTS, URINE NONE SEEN \\lpf; REFLEX CULTURE, URINE No (No)
--- NOTE | 2024-10-01 11:39 | NUR ---
DR. WELLER IN TO SEE PATIENT, BULKY DRESSING REMOVED. ARMANDO HOSE PLACED TO LEFT LOWER LEG, BILATERAL ARMANDO HOSE NOW IN PLACE. PT IN WORKING WITH PATIENT.
--- NOTE | 2024-10-01 11:50 | NUR ---
PT WORKING WITH PHYSICAL THERAPY AT THIS TIME, PT WAS ABLE TO AMBULATE THE SUN FROM ROOM 115 TO THE PT ROOM, PT CRYO CUFF ICE CHANGED IN COOLER AND BED CHANGED. PT URINE COLLECTION CUP ALSO PLACED ON PT BEDSIDE TABLE AND PT INSTRUCTED TO USE WHEN THEY NEED TO VOID.
[2024-10-01] MEDS ORDERED: TRAZODONE HCL50 MG PO (12:27)
--- NOTE | 2024-10-01 12:29 | NUR ---
MED REC COMPLETE
--- NOTE | 2024-10-01 12:36 | NUR ---
PT RETURNED BACK INTO CHAIR AFTER WORKING WITH PHYSICAL THERAPY PT EDUCATED ABOUT USING COLLECTION CUP WHEN THEY NEED TO VOID NEXT AND URINE SAMPLE SIGN HANGING. PT HAS NO NEEDS AND CALL LIGHT IN REACH.
--- NOTE | 2024-10-01 13:06 | NUR ---
CHART FAXED TO [facility]
--- NOTE | 2024-10-01 13:08 | NUR ---
EX ANNETTE PHONE NUMBER [phone]. SPOKE WITH HER IN REGARDS TO DISCHARGE. SHE WILL BE TAKING HIM HOME. ADDRESS GIVEN FOR IV ABX TO BE SHIPPED TO HER HOUSE.
[2024-10-01 13:17] LABS: BLOOD/HGB, URINE MODERATE (Negative); KETONE, URINE NEGATIVE (Negative); LEUK ESTERASE, URINE NEGATIVE (negative); NITRITE, URINE NEGATIVE (negative)
[2024-10-01 13:25] LABS: BACTERIA, URINE RARE /hpf (negative); CASTS, URINE NONE SEEN \\lpf; CRYSTALS, URINE NONE SEEN (0-1+); EPITHELIAL CELLS, URINE SQUAMOUS 2+ /lpf (0-1+); REFLEX CULTURE, URINE No (No)
--- NOTE | 2024-10-01 14:07 | NUR ---
CALLED [facility]. THEY SAID THE MEDICATION IS COVERED BUT THE SUPPLIES WOULD BE 30 DOLLARS A DAY AND THEY DID NOT COVER THE NURSING. LET PATIENT KNOW. PATIENT WOULD RATHER COME TO THE HOSPITAL EVERYDAY TO RECIEVE ABX.
--- NOTE | 2024-10-01 16:26 | NUR ---
PT SITTING UP IN CHAIR AT THIS TIME, PT DENIES NEEDS AT THIS TIME, AND DENIES PAIN. PT HAS VISITORS SITTING AT PT BEDSIDE AND PT CALL LIGHT IN REACH.
--- NOTE | 2024-10-01 17:32 | NUR ---
PT SITTING UP IN BED, PT PAIN IS TOLERABLE AT THIS TIME AND PT IS EATING DINNER AT THIS TIME, CALL LIGHT IN REACH AT THIS TIME.
--- NOTE | 2024-10-01 18:12 | NUR ---
PT SITTING UP IN BED, PT ATE ALL OF THEIR DINNER AND TOLERATED WELL, PT DENIES NEEDING PAIN MEDICATION AT THIS TIME WITH PAIN BEING 3-10, CRYO CUFF IN PLACE WITH TOWELS UNDER HEELS AND VFP IN PLACE. CALL LIGHT IN REACH AT THIS TIME.
--- NOTE | 2024-10-01 19:22 | NUR ---
REPORT RECEIVED FROM DAY SHIFT RN. PT LYING IN BED ALERT AND ORIENTED. DENIES NEEDS. WHITE BOARD UPDATED. CALL LIGHT IN REACH.
--- NOTE | 2024-10-01 20:44 | NUR ---
EVENING ASSESSMENT COMPLETE. SCHEDULED MEDS ADMIN PER EMAR. PT REPORTS LEFT KNEE PAIN 05/14. PRN FOR PAIN ADMIN PER REQUEST. VS AND I&O OBTAINED. LEFT KNEE WITH DRESSING INTACT. NO REDNESS OR DRAINAGE NOTED. CRYO IN PLACE. SCD'S/TEDS IN PLACE. CMS INTACT. PT DENIES QUESTIONS OR CONCERNS. CALL LIGHT IN REACH.
--- NOTE | 2024-10-01 21:53 | NUR ---
PT AWAKE IN BED. LEFT UPPER ARM PICC FLUSHED PER PROTOCOL. BRISK BLOOD RETURN NOTED. DRESSING INTACT. IV ABX INFUSING PER ORDER. URINAL EMPTIED. NO FURTHER NEEDS.
[2024-10-02] VITALS (10 sets, daily range): BP systolic 105–179; BP diastolic 57–97
--- NOTE | 2024-10-02 00:09 | NUR ---
PT IN BED RESTING WITH EYES CLOSED. RESPIRATIONS EVEN. CALL LIGHT IN REACH.
--- NOTE | 2024-10-02 02:16 | NUR ---
PT INCONTINENT OF LARGE AMOUNT SOFT BROWN BM. UP TO BR WITH 1PA AND FWW TO CONTINUE BM AND VOID. STAFF ASSIST WITH SILVANA CARE. LINENS AND GOWN CHANGED. BACK TO BED, BECKY WELL. REPORTS LEFT KNEE PAIN 05/14. PRN FOR PAIN ADMIN PER EMAR. FRESH ICE TO CRYO. SCD'S/TEDS/HP IN PLACE. LEFT KNEE DRESSING UNCHANGED. NO FURTHER NEEDS. CALL LIGHT IN REACH.
--- NOTE | 2024-10-02 04:00 | NUR ---
PT RESTING IN BED WITH EYES CLOSED. RESPIRATIONS EVEN. CALL LIGHT IN REACH.
--- NOTE | 2024-10-02 04:57 | NUR ---
CALL LIGHT ANSWERED. PT UP TO BR WITH FWW AND SBA TO VOID AND HAVE EXTRA LARGE SOFT BM. BACK TO BED, BECKY WELL. VS AND I&O OBTAINED. FRESH ICE TO CRYO. SCD'S/TEDS/HP IN PLACE. NO FURTHER NEEDS. CALL LIGHT IN REACH.
[2024-10-02 06:14] LABS: BASOPHILS 0.4 % (0.2-1.2); EOSINOPHILS 4.9 % (0.8-7.0); LYMPHOCYTES 18.8 % (21.8-53.1); MCH 24.9 PG (25.7-32.2); MCHC 30.7 g/dL (32.3-36.5); MCV 81.2 fL (79.0-92.2); MONOCYTES 9.5 % (5.3-12.2); NEUTROPHILS 65.9 % (34.0-67.9); RBC 4.09 M/uL (4.63-6.08)
--- NOTE | 2024-10-02 06:24 | NUR ---
MORNING LABS DRAWN FROM PICC LINE PER PROTOCOL. IV ABX INFUSING PER ORDER. PT REPORTS LEFT KNEE PAIN 03/16. PRN FOR PAIN ADMIN PER REQUEST. ON-Q PUMP DC'D BY [facility]. SAMAN DRESSING PLACED OVER INSERTION SITE. NO FURTHER NEEDS. CALL LIGHT IN REACH.
--- NOTE | 2024-10-02 06:35 | NUR ---
PATIENT CALLED TO USE THE RESTROOM SBA TO HAVE A BM AND VOIDED UNMEASURED. PATIENT WASHED HANDS AND BACK TO BED. FOOT PUMP AND CRYO CUFF ARE BACK ON. NO FURTHER NEEDS AT THIS TIME.
--- NOTE | 2024-10-02 07:31 | NUR ---
PT RESTING EYES CLOSED AT TIME OF SHIFT REPORT LEFT UNDISTURBED. CALL LIGHT AND NEEDED ITEMS IN REACH
--- NOTE | 2024-10-02 08:00 | NUR ---
Updated by PT of pts tolerance. They are concerned as pt has very poor tolerance and would need to visit the hospital daily for OP IV antibiotics. I spoke with pt in his room and we discussed IP rehab at [facility] and [facility]. I explained the amount of therapy he would receive at each place. Pt is open to either and [place] I will fax is chart to [facility], [facility] at pts request.
--- NOTE | 2024-10-02 08:46 | NUR ---
BREAKFAST WELL TOLERATED. DC PLANNED IN TO ASSIST PT WITH A PLAN ALL QUESTIONS ANSWERED. PT SITTING UP IN BED NOW TALKING WITH VISITORS
[2024-10-02] MEDS ORDERED: AMLODIPINE BESYLATE 5 MG TAB PO SCH (09:00)
[2024-10-02 09:24] LABS: BLOOD/HGB, URINE SMALL (Negative); KETONE, URINE NEGATIVE (Negative); LEUK ESTERASE, URINE NEGATIVE (negative); NITRITE, URINE NEGATIVE (negative)
[2024-10-02 09:32] LABS: BACTERIA, URINE NONE SEEN /hpf (negative); CASTS, URINE NONE SEEN \\lpf; CRYSTALS, URINE AMORPHOUS PHOSPH 3+ (0-1+); EPITHELIAL CELLS, URINE SQUAMOUS 1+ /lpf (0-1+); REFLEX CULTURE, URINE No (No)
--- NOTE | 2024-10-02 09:47 | NUR ---
PT UP TO TOILET THEN TO THE RECLINER SBA WITH FWW. CALL LIGHT AND NEEDED ITEMS AT CHAIRSIDE
--- NOTE | 2024-10-02 10:00 | NUR ---
Spoke with Dannielle at [facility]. They may have a dc tomorrow. Chart faxed. Chart also faxed to [facility] and [facility]. I did get a return reply from both SNFs, they will not have beds open until next week.
--- NOTE | 2024-10-02 10:40 | NUR ---
DR WELLER PHONES EARLIER IN THE SHIFT REQUESTS STRAIGHT CATH UA BE SENT TO LAB. PT TOLERATED PROCEEDURE WELL SAMPLE SENT TO LAB. PT IS CURRENTLY UP WORKING WITH P/T
--- NOTE | 2024-10-02 10:48 | NUR ---
PT NOT AVAILABLE FOR VISIT. PROVIDED PRAYER.
--- NOTE | 2024-10-02 11:13 | NUR ---
CRYO ICE REFILLED PT CONTINUES IN THE CHAIR.
--- NOTE | 2024-10-02 12:57 | NUR ---
PT CONTINUES UP IN THE CHAIR NOON MEAL WELL TOLERATED. PT DENIES NEEDS AT THIS TIME
--- NOTE | 2024-10-02 14:28 | NUR ---
PT RESTING IN BED DOING EXERCIZES INSTRUCTED DENIES NEEDS
--- NOTE | 2024-10-02 15:00 | NUR ---
Notified by staff, Tani would like to visit. In to see Tani and he would like to know if there is a SNF in [facility] as this is [place] from [place]. I let him know [facility] is there. He now is considering [facility]. I called and left a message for Adriane and faxed his chart.
--- NOTE | 2024-10-02 15:25 | NUR ---
RE-FILLED CRYO ALSO GOT HIM A FRESH CUP OF ICE WATER.
--- NOTE | 2024-10-02 16:02 | NUR ---
PT RESTING IN BED DOING EXERCIZES WATCHING TV AGREES HE IS COMFORTABLE
--- NOTE | 2024-10-02 17:24 | NUR ---
PT SITTING UP IN BED WITH EVENING MEAL. EX /PROSPECTIVE CAREGIVER REQUESTS TO TALK TO DC SOLE CONDITIONER SHE IS MEETING WITH HER AND PT AT THIS TIME
--- NOTE | 2024-10-02 17:38 | NUR ---
NOtified by staff, pt would like to visit. Returned to room and pts exwife is present and would like an update. Reviewed [facility] and SNF. She states she is relieved as she works as a CG and would be gone daily. She and pt agree the first choice would be to [facility] and second choice is [facility]. Let them know I do not have confirmation from either place, but should know tomorrow. Pt now in agreement rehab is the best as he plans on a total knee in the near future. He feels this would get him in the best shape. Roseanna or friend can drive him when discharged.
--- NOTE | 2024-10-02 19:24 | NUR ---
WHEN I WENT IN TO DO PATIENT'S TWO CLOCK VITALS OCCUPATIONAL AND PATIENT WERE IN THE BATHROOM. PATIENT WAS SHAVING.
--- NOTE | 2024-10-02 19:30 | NUR ---
RECEIVED REPORT ON PT. CHECKED IN ON PT. PT HAS NO NEEDS AT THIS TIME. CALL LIGHT WITH IN REACH.
--- NOTE | 2024-10-02 22:44 | NUR ---
IN FOR PT ASSESSMENT. PT RESTING WITH EYES CLOSED. PT AWAKENS WHEN SPOKEN TO. PT REPORTS PAIN 1/10 AT LEFT KNEE. PT HAS SCDS ON, CRYOTHERAPY ON AND REFILLED WITH ICE, AND CALL LIGHT WITHIN REACH. REFILLED PT'S WATER AND HE HAS NO FURTHER NEEDS AT THIS TIME.
[2024-10-03] VITALS (11 sets, daily range): BP systolic 111–170; BP diastolic 62–88
--- NOTE | 2024-10-03 00:57 | NUR ---
PT RESTING EYES CLOSED. CALL LIGHT WITHIN REACH. BREATHING EVEN.
--- NOTE | 2024-10-03 02:29 | NUR ---
ANSWERED CALL LIGHT, PT'S SCDS WERE BEEPING BECAUSE THE RIGHT HAD SLIPPED OFF HIS HEEL. PUT SCDS BACK ON HEEL. EMPTIED URINAL. PT HAS NO OTHER NEEDS AT THIS TIME. CALL LIGHT WITHIN REACH.
--- NOTE | 2024-10-03 04:53 | NUR ---
PT RESTING EYES CLOSED. CALL LIGHT WITH IN REACH.
[2024-10-03 06:10] LABS: BASOPHILS 0.5 % (0.2-1.2); EOSINOPHILS 4.5 % (0.8-7.0); LYMPHOCYTES 22.6 % (21.8-53.1); MCH 24.9 PG (25.7-32.2); MCHC 30.7 g/dL (32.3-36.5); MCV 81.1 fL (79.0-92.2); MONOCYTES 9.7 % (5.3-12.2); NEUTROPHILS 62.0 % (34.0-67.9); RBC 4.18 M/uL (4.63-6.08)
--- NOTE | 2024-10-03 06:14 | NUR ---
IN TO PT'S ROOM FOR ASSESSMENT. PT AWAKENS WHEN I ENTER. PT REPORTS PAIN 3/10, BUT REPORTS HE DID SLEEP BETTER LAST NIGHT. REFILLED PT'S WATER, REFILLED ICE IN CRYOTHERAPY. SCDS AND ARMANDO HOSE ON. PT HAS NO FURTHER NEEDS AT THIS TIME. CALL LIGHT WITH IN REACH.
--- NOTE | 2024-10-03 07:20 | NUR ---
REPORT RECEIVED FROM ILYA THOMAS. PT AWAKE AND ALERT IN BED. CRYOCUFF IN PLACE. NO REQUESTS. CALL LIGHT IN REACH.
--- NOTE | 2024-10-03 07:41 | NUR ---
PATIENT IN BED AT THIS TIME. PIPE CHANGER CHARTED HOURLY ROUNDS, PATIENT WILLING TO SIT IN CHAIR AFTER BREAKFAST. CALL LIGHT WITHIN REACH, NO FURTHER NEEDS.
--- NOTE | 2024-10-03 08:53 | NUR ---
MEDICATION ADMINISTERED, SEE MAR. ASSESSMENT COMPLETE. [facility] AND [facility] ARRIVE WITH L KNEE BRACE FOR PT AND FIT HIM TO IT. EDUCATION PROVIDED, PT VERBALIZES UNDERSTANDING. PT LOOKING FORWARD TO REHAB. REPORTING 2/10 L KNEE PAIN, TOLERABLE FOR HIM. PEDAL PULSE 2+ AND CAP REFILL LESS THAN 3 SEC ON L FOOT. PT HAS VISITOR ARRIVE. BREAKFAST TRAY REMOVED, URINAL EMPTIED AND MADE AVAILABLE TO HIM. PICC LINE TO L UPPER ARM HAS BRISK BLOOD RETURN AND IS INFUSING IV ABX WNL. NO REQUESTS. CALL LIGHT IN REACH.
--- NOTE | 2024-10-03 08:57 | NUR ---
PATIENT IN BED AT THIS TIME. ELECTRICAL INSTRUMENT MAKER CAHRTED VITALS AND I&O'S. PATIENT STATED THAT HE WANTED TO TAKE A SHOWER AT 1400. CALL LIGHT WITHIN REACH, NO FURTHER NEEDS AT THIS TIME.
[2024-10-03] MEDS ORDERED: METOPROLOL TARTRATE 25 MG TAB PO SCH (09:00)
--- NOTE | 2024-10-03 09:40 | NUR ---
IV ABX COMPLETED. PICC LINE IS HEPARIN LOCKED AT THIS TIME. NO REQUESTS. CALL LIGHT IN REACH.
--- NOTE | 2024-10-03 10:00 | NUR ---
PT RESTING IN BED WITH NO REQUESTS, STATES HE IS GOING TO TAKE A NAP.
--- NOTE | 2024-10-03 11:00 | NUR ---
Notified by [facility] they will not accept this pt. I called [facility] and they are reviewing and will let me know later. I went and spoke with Tani and updated. He is upset as he had his heart set on [facility]. I let him know, I believe [facility] will accept him. He declines to go as he states he was told last night its a "[facility]". His mom passed in a SNF and he refuses to go. I attempted to discuss these are now considered Long-Term Facilities and this is where pt go to rehab. Pt is adamant he will not go. I discussed with PT and Tracy the Medical hardwood floor refinisher. There is a possibility we could keep this pt as a Swingbed/Transitional pt. This was discussed by the above, pt will need to meet criteria in 2 weeks. If he does not meet he will need to dc to SNF or home with his exwife. I called Dawn at the [facility] and she would prefer this placement to any others. Discussed pt will need to go on to a SNF if he cannot meet criteria in 2 weeks. Danw agrees. I then spoke with Tani and he is in agreement and states understanding. He hopes he can go to his exwifes on dc and finish antibiotics as an out patient. Dawn will dc from tomorrow and admit as Swing Bed.
--- NOTE | 2024-10-03 11:04 | NUR ---
PT IS WORKING WITH PHYSICAL THERAPY AT THIS TIME.
--- NOTE | 2024-10-03 11:07 | NUR ---
PT NOT AVAILABLE FOR VISIT. PROVIDED PRAYER.
--- NOTE | 2024-10-03 11:14 | NUR ---
PATIENT IN WITH PHYSICAL THERAPY AT THIS TIME. LIGHT ARMORED VEHICLE OFFICER CHANGED PATIENTS LINENS AND SET UP CHAIR FOR PATIENT. CALL LIGHT WITHIN REACH, NO FURTHER NEEDS AT THIS TIME.
--- NOTE | 2024-10-03 11:46 | NUR ---
PT UP IN RECLINER WITH BLE ELEVATED AFTER PHYSICAL THERAPY. REPORTS L KNEE PAIN RATED 5/10, PRN PAIN MEDICATION ADMINISTERED. CRYOCUFF IN PLACE. FRESH ICE WATER PROVIDED. NO OTHER REQUESTS. CALL LIGHT IN REACH.
--- NOTE | 2024-10-03 14:51 | NUR ---
PATIENT IN CHAIR AT THIS TIME. PSYCHOLOGISTS CHARTED VITALS DN I&O'S. CAN SET PATIENT UP FOR SHOWER. CALL LIGHT WITHIN REACH, NO FURTHER NEEDS.
--- NOTE | 2024-10-03 14:56 | NUR ---
PT COMPLETES SHOWER WITH OCCUPATIONAL THERAPY AND AMBULATES BACK TO BED WITH FWW. DRESSING CHANGED TO L KNEE WITH FRESH ACTI-COAT DRESSING PER [facility] MIRAMONTES. INCISION IS INTACT WITH SMALL AMOUNT OF REDNESS TO SILVANA-WOUND, NO HEAT, NO NEW DRAINAGE. ALLEVYN TO LATERAL KNEE PUNCTURE REMOVED AT THIS TIME, PUNCTURE IS CLOSED WITH SMALL SCAB AND NO DRAINAGE NOTED. PT REPORTING L KNEE PAIN 4/10. CRYOCUFF RETURNED TO PLACE. PT RESTING IN BED, REQUESTING TO NOT BE DISTURBED SO HE MIGHT SLEEP AWHILE. CALL LIGHT IN REACH.
--- NOTE | 2024-10-03 15:12 | NUR ---
PT RESTING IN BED WITH EYES CLOSED, MOUTH OPEN, RR EVEN AND UNLABORED.
--- NOTE | 2024-10-03 15:20 | NUR ---
Received a call from [facility] and they will accept this pt tomorrow. Updated pt declined to go as he was told by someone it is a "Shelter". His mom passed in a SNF and he is refusing to go. At this time we plan to keep pt as a Swingbed pt for 2 weeks for IV and therapy. I asked if he does not meet criteria for dc at that time if they would still accept him and she states "yes".
--- NOTE | 2024-10-03 16:18 | NUR ---
PT RESTING IN BED AWAKE AND ALERT, REQUESTING WARM BLANKET. WARM BLANKET PROVIDED, THERMOSTAT ADJUSTED. 150ML CLEAR, YELLOW URINE EMPTIED AND WRITTEN ON DOOR. NO OTHER REQUESTS, CALL LIGHT IN REACH.
--- NOTE | 2024-10-03 16:35 | NUR ---
PATIENT IN BED AT THIS TIME. BEAD INSPECTOR CHARTED HOURLY ROUNDS. CALL LIGHT WITHIN REACH, NO FURTHER NEEDS.
--- NOTE | 2024-10-03 16:36 | NUR ---
PT ON CELL PHONE IN BED, NO REQUESTS. CALL LIGHT IN REACH.
--- NOTE | 2024-10-03 17:58 | NUR ---
PATIENT IN BED AT THIS TIME. PULMONOLOGIST CHARTED VITALS AND I&O'S. CALL LIGHT WITHIN REACH, NO FURTHER NEEDS AT THIS TIME.
--- NOTE | 2024-10-03 18:09 | NUR ---
PT RESTING IN BED, DENIES ANY NEEDS. CALL LIGHT IN REACH.
--- NOTE | 2024-10-03 19:24 | NUR ---
GOT REPORT FROM DAY SHIFT NURSE.
--- NOTE | 2024-10-03 19:26 | NUR ---
RECEIVED REPORT ON PT. PT SITTING IN BED WATCHING TV. PT HAS NO NEEDS AT THIS TIME. CALL LIGHT WITHIN REACH.
--- NOTE | 2024-10-03 21:59 | NUR ---
IN WITH PT FOR ASSESSMENT. PT SITTING IN BED WATCHING TV. PT RATES HIS PAIN 3/10 IN LEFT KNEE. PT HAS CRYOTHERAPY PLACED, ICE REFILLED. PT IS USING ANKLE SCDS, PER EDGARDO POPE PT DOES NOT HAVE TO HAVE ON ARMANDO HOSE AND IS NOT CURRENTLY USING THEM. REFILLED PT'S WATER. PT HAS CALL LIGHT WITH IN REACH. NO FURTHER NEEDS AT THIS TIME.
--- NOTE | 2024-10-03 23:01 | NUR ---
PT RESTING WITH EYES CLOSED. CALL LIGHT WITH IN REACH.
--- NOTE | 2024-10-04 00:08 | NUR ---
PT RESTING IN BEDS EYES CLOSED. CALL LIGHT WITH IN REACH.
--- NOTE | 2024-10-04 02:02 | NUR ---
PT RESTING IN BED WITH EYES CLOSED. CALL LIGHT WITH IN REACH.
--- NOTE | 2024-10-04 03:04 | NUR ---
PT UP IN BED WATCHING TV. PT DENIES ANY NEEDS AT THIS TIME. CALL LIGHT IS WITH IN REACH.
--- NOTE | 2024-10-04 04:40 | NUR ---
PT RESTING IN BED WITH EYES CLOSED. CALL LIGHT WITH IN REACH.
[2024-10-04 05:50] VITALS: BP 148/83
[2024-10-04 05:52] VITALS: BP 148/83
--- NOTE | 2024-10-04 06:03 | NUR ---
IN TO DO PT ASSESSMENT. PT REPORTS HIS PAIN 2/ AND WOULD LIKE TO HOLD OFF ON PAIN MEDICATION AT THIS TIME. ANKLE SCDS IN PLACE, CRYOTHERAPY IN PLACE AND ICE REFILLED. PT'S WATER REFILLED. PT HAS NO FURTHER NEEDS AT THIS TIME. PT REPORTS "GOT SOME SLEEP LAST NIGHT."
--- NOTE | 2024-10-04 07:15 | NUR ---
REPORT RECIEVED FROM ILYA THOMAS. PATIENT RESTING IN BED ON HIS LEFT SIDE WITH HIS EYES CLOSED. EVEN AND UNLABORED RESPIRATIONS NOTED. CALL LIGHT AND PERSONAL BELONGINGS ARE WITHIN REACH.
== END 2024-10-04 07:40 | disposition swing bed (61) | DRG 467 ==
LOC: MS 09-28 05:45 → DSVR 09-28 05:45 → MS 09-28 07:00
PROVIDERS: Family Medicine; Physician Assistant; ADMIT Specialist; ATTEND Specialist
PROC: 0SPD0JZ Removal of Synthetic Substitute from Left Knee Joint, Open Approach (ICD-10-PCS; 2024-09-28)
PROC: 0SRD0EZ Replacement of Left Knee Joint with Articulating Spacer, Open Approach (ICD-10-PCS; 2024-09-28)
PROC: 02HV33Z Insertion of Infusion Device into Superior Vena Cava, Percutaneous Approach (ICD-10-PCS; 2024-09-28)
PROC: 3E03329 Introduction of Other Anti-infective into Peripheral Vein, Percutaneous Approach (ICD-10-PCS; principal; 2024-09-28 07:00)
DX: T84.54XA Infection and inflammatory reaction due to internal left knee prosthesis, initial encounter (principal); K57.32 Diverticulitis of large intestine without perforation or abscess without bleeding; N39.0 Urinary tract infection, site not specified; B96.20 Unspecified Escherichia coli [E. coli] as the cause of diseases classified elsewhere; I10 Essential (primary) hypertension; K21.9 Gastro-esophageal reflux disease without esophagitis; G47.00 Insomnia, unspecified; I48.91 Unspecified atrial fibrillation; N40.0 Benign prostatic hyperplasia without lower urinary tract symptoms; H40.9 Unspecified glaucoma; Z96.653 Presence of artificial knee joint, bilateral; Z79.01 Long term (current) use of anticoagulants; Z82.49 Family history of ischemic heart disease and other diseases of the circulatory system; Z82.3 Family history of stroke; Z79.899 Other long term (current) drug therapy; Z90.49 Acquired absence of other specified parts of digestive tract; Y83.8 Other surgical procedures as the cause of abnormal reaction of the patient, or of later complication, without mention of misadventure at the time of the procedure
CPT/HCPCS: 01400; 36415; 36569; 71045; 73560; 74177; 80048; 80053; 81001; 83735; 84100; 85025; 87070; 87075; 87186; 87205; 94762; 94799; 97110; 97116; 97161; 97166; 97530; 97535; A9270; C1751; J0131; J0696; J1100; J1171; J1885; J2003; J2250; J2405; J2704; J2795; J3010; J3475; J3490; J7121; J7999; Q9967